=== PATIENT | female | born 1930 ===

== ENCOUNTER → 2017-05-01 | Outpatient (CLI) | payer OTHER ==
[~2017-05-01] VITALS: Ht 154.9 cm; Wt 63.5 kg
== END | disposition home or self-care (01) ==
LOC: OFIC 805 08:25
DX: H93.13 Tinnitus, bilateral (principal); H61.21 Impacted cerumen, right ear

== ENCOUNTER 2017-07-03 10:13 | Outpatient (CLI) | payer OTHER ==
[~2017-07-03] VITALS: Ht 152.4 cm; Wt 63.5 kg
== END 2017-07-03 10:35 | disposition home or self-care (01) ==
LOC: OFIC 805 10:13
DX: H90.41 Sensorineural hearing loss, unilateral, right ear, with unrestricted hearing on the contralateral side (principal); H93.13 Tinnitus, bilateral